=== PATIENT | male | born 1970 | race Caucasian/White ===

== ENCOUNTER → 2019-10-28 12:30 | Outpatient (CLI) | payer OTHER, SELFPAY ==
[2019-10-28 13:16] LABS: Hematocrit 45.1 % (41-53); Hemoglobin 15.9 g/dL (13.5-17.5); Mean Corpuscular HGB Conc 35.3 % (30-36); Mean Corpuscular Hemoglobin 32.3 PG (26-34); Mean Corpuscular Volume 91.3 fL (80-100); Platelet Count 282 X10^3/uL (150-400); Red Blood Cell Count 4.94 X10^6/uL (4.5-5.9); Red Cell Distribution Width 12.3 % (11.6-14.8); White Blood Cell Count 6.1 X10^3/uL (4.5-11.0)
[2019-10-28 13:55] LABS: Alanine Aminotransferase 41 IU/L (<50); Albumin 4.8 g/dL (3.5-5.0); Albumin Globulin Ratio 1.7 (1.0-2.8); Alkaline Phosphatase 73 U/L (38-126); Aspartate Aminotransferase 41 IU/L (17-59); BUN Creatinine Ratio 13.8 (6-22); Bilirubin Total 1.1 mg/dL (0.2-1.3); Blood Urea Nitrogen 11 mg/dL (9-20); Calcium 9.6 mg/dL (8.4-10.2); Carbon Dioxide 29 mmol/L (22-32); Chloride 102 mmol/L (98-107); Cholesterol 224 mg/dL (140-199); Estimated Glomerular Filt Rate > 60.0 mL/min (>60); Globulin 2.9 g/dL (1.7-4.1); Glucose 91 mg/dL (70-100); HDL Cholesterol 37 mg/dL (40-60); HEMOLYSIS < 15 (0-50); LDL Cholesterol Calculated 154 mg/dL (<100); Potassium 4.7 mmol/L (3.4-5.1); Sodium 141 mmol/L (137-145); Total Protein 7.7 g/dL (6.3-8.2); Triglycerides 166 mg/dL (35-150)
== END ==
PROVIDERS: Visit Provider Nurse Practitioner Family
DX: Z00.00 Encounter for general adult medical examination without abnormal findings (principal); Z13.6 Encounter for screening for cardiovascular disorders
CPT/HCPCS: 36415; 80053; 80061; 85027

== ENCOUNTER → 2020-05-29 11:40 | Outpatient (CLI) | payer OTHER, SELFPAY ==
[2020-05-30 09:10] LABS: COVID19 Sendout Not Detected (Not Detect)
== END ==
PROVIDERS: PCP Nurse Practitioner Family; Visit Provider Physician Assistant
DX: Z11.59 Encounter for screening for other viral diseases (principal)
CPT/HCPCS: 87635

== ENCOUNTER 2020-06-01 09:45 | Day surgery (SDC) | payer OTHER, SELFPAY ==
--- NOTE | 2020-06-01 | PATH_ITS ---
[facility] Accession Number: [id number] . 01 Material submitted: . body - POLYP AT 100CM . 02 Diagnosis: Colon, Polyp at 100 cm, Biopsy: Inflammatory polyp. Negative for dysplasia and malignancy. [facility] 06/04/2020 1609 Local . 02 Electronically signed: . Malini Arteaga MD, Pathologist NPI- [id number] . 01 Gross description: . POLYP AT 100CM: Received in formalin is 1 fragment(s) of wilkinson, soft tissue measuring 0.4 x 0.3 x 0.3 cm which is inked, bisected and submitted entirely in 1 cassette(s) /QBJ 06/02/2020 0715 Local . 02 Pathologist provided ICD-10: K63.5 . 02 CPT . 574952 Performed at: 01 [facility] [address] [id number] MD Esequiel Gary MD Phone: [phone] Performed at: 02 [facility] [address] [place], [place] [id number] MD Malini Arteaga MD Phone: [phone]
[2020-06-01 09:54] VITALS: BP 153/89; PULSE 80; RESP 18; TEMP 36.7; O2SAT 98; BMI 30.8
--- NOTE | 2020-06-01 10:04 | P.HP_ITS ---
History of Present Illness History of Present Illness Date Patient Seen: 06/01/20 Time Patient Seen: 10:04 Chief complaint: SDC Narrative: This is a 50-year-old man who has never had a screening colonoscopy. He denies any personal history of melena, hematochezia, unexplained abdominal pain, unexplained weight loss. He denies any significant family history of colon cancer. ROS: He has a rash on his buttocks from the bowel prep. Thirteen system review is otherwise negative other than as mentioned below and in HPI. PE: GENERAL: Well groomed and cooperative. Appears stated age. Answers questions promptly and appropriately. Vital signs noted. HENT: Normocephalic, atraumatic. Hearing intact. EYES: Conjunctiva pink, sclera white, no periorbital swelling. CARDIOVASCULAR: Regular rate. No pedal edema. RESPIRATORY: Non-tachypneic, breathing comfortably on room air. GASTROINTESTINAL: Abdomen soft and non-distended GENITALURINARY: No flank tenderness. MUSCULOSKELETAL: Equal tone and mass bilaterally. SKIN: Warm, dry, soft, appropriate color for ethnicity. No other lesions, rashes, or wounds. NEURO: Alert and Oriented X 3. No gross sensory deficits, or cognitive issues. PSYCH: Appropriate affect and mood. Patient History Medical History Actinic keratosis (Chronic ~1989) Anxiety (Chronic) Chicken pox (Resolved) Chronic back pain (Chronic ~2004) Depression (Chronic) Hearing loss (Chronic ~1989) Mixed hyperlipidemia (Acute 10/2019) Numbness and tingling (Acute ~2003) Sciatica (Inactive ~2004) Shoulder pain (Chronic ~2018) Spinal stenosis (Chronic) Tinnitus (Inactive ~1989) Tinnitus of both ears (Acute) Surgical History Anesthesia (Resolved) History of photorefractive keratectomy (PRK) (Resolved ~2003) History of vasectomy (Resolved ~1998) [place] teeth removed (Resolved ~1989) Family & Social History Family History Father Parkinson's disease Hemochromatosis Mother Thyroid disease Sister Thyroid disease Sister Thyroid disease Daughter Mental health problem Tobacco & Substance use: Smoking Status Former smoker alcohol intake never Meds Home Medications and Allergies Home Medications Medication Instructions Recorded Confirmed Type ibuprofen 200 mg capsule 400 mg PO Q8H PRN MDD 1600 12/02/19 06/01/20 History atorvastatin 20 mg tablet 20 mg PO DAILY #90 tab 12/28/19 06/01/20 Rx Allergies Allergy/AdvReac Type Severity Reaction Status Date / Time No Known Drug Allergies Allergy Unverified 06/01/20 09:33 Assessment & Plan Assessment and plan (1) At average risk for colon cancer: Status: Acute Assessment & Plan narrative: Risks and benefits of screening colonoscopy and possible polypectomy were discussed with the patient including risk of bleeding, perforation, need for additional procedures, risks of anesthesia. The patient desires to proceed with the colonoscopy procedure. COVID-19 COVID-19 status: Negative Result date/Date tested (Pos, Neg/Pending): 05/29/20 Time Spent With Patient Time with patient: 15-24 minutes Quality VTE Deep Vein Thrombosis/Pulmonary Embolism Present on Admission: No
--- NOTE | 2020-06-01 10:21 | PM.OP.ENDO ---
Operative Date/Time/Diagnoses Date of procedure: 06/01/20 Time of procedure: 10:21 Pre-op diagnosis: Average risk for colon cancer, never had a screening colonoscopy Post-op diagnosis: other (One adenomatous appearing colon polyp at 100 cm, removed with hot snare) Procedure & Clinicians Study performed: Colonoscopy to the cecum Procedural sedation performed by the endoscopy Polypectomy with hot snare Indications: 50 yo man at average risk for colon cancer, never had a screening colonoscopy Surgeon: Rosa Quick Procedure Notes SCOAP/Timeout: Performed Procedure in detail: The patient was brought to the room and placed in left lateral decubitus position with all bony prominences padded. A time-out was performed and then the patient was given procedural sedation starting with [4] mg of Versed and [100] mcg of fentanyl. Total of 6 mg of Versed and 50 micro g of fentanyl were given for the entire procedure. Vitals were monitored throughout the procedure and remained stable. Once adequately sedated, the procedure was begun. A rectal exam was performed revealing [no abnormalities]. The colonoscope was then introduced to the rectum and advanced to the cecum in the usual fashion. []The cecum was identified by the appendiceal orifice, the mucosal tri-fold, and the ileocecal valve. The scope was then retracted while rotating side to side and examining each mucosal fold. An adenomatous appearing 5 mm polyp was found at 100 cm, and removed with hot snare. No other lesions or abnormalities was seen [] At the conclusion of the procedure retroflexion was performed and [small grade 1 internal hemorrhoids without stigmata of bleeding were seen]. The scope was then withdrawn from the rectum the procedure was concluded. The patient tolerated the procedure well and was transferred to the PACU in stable condition. Scope withdrawal time: 9 Sedation minutes: 18 Findings: polyp (Single 5 mm polyp completely removed) Specimen(s): other (Polyp from 100cm) Complications: none Impression: Normal appearing colon except for 1 adenomatous appearing polyp which was completely removed Post-procedure Recommendations: Colonscopy in 10 years (As long as pathology is low grade) Follow up: as needed Disposition: PACU
[2020-06-01] MEDS: MIDAZOLAM 5 MG/5 ML VIAL IV (10:45)
[2020-06-01] MEDS: fentaNYL 250 MCG/5 ML INJ IV (10:45)
[2020-06-01 10:51] VITALS: BP 136/68; PULSE 75; RESP 16; TEMP 36.2; O2SAT 95
--- NOTE | 2020-06-01 10:54 | SUR.PHASEI ---
awake, oriented upon arrival. HOB elevated, fluids given.
[2020-06-01 10:55] VITALS: BP 136/82; PULSE 82; RESP 13; O2SAT 96
[2020-06-01 11:01] VITALS: BP 141/83; PULSE 79; RESP 12; O2SAT 93
--- NOTE | 2020-06-01 11:08 | SUR.PHASEI ---
1108 to OPD, A&O, Denies pain, Tolerated PO well, Stable
== END 2020-06-01 11:15 | disposition home or self-care (01) ==
PROVIDERS: PCP Nurse Practitioner Family; Referring Provider Nurse Practitioner Family; Visit Provider Surgery
PROC: 0DJD8ZZ Inspection of Lower Intestinal Tract, Via Natural or Artificial Opening Endoscopic (ICD-10-PCS; CPT 45378; principal; 2020-06-01 10:45)
DX: Z12.11 Encounter for screening for malignant neoplasm of colon (principal); K64.0 First degree hemorrhoids; K63.5 Polyp of colon
CPT/HCPCS: 45385; 99152; J2250; J3010